=== PATIENT | male | born 1980 | race African-American/Black ===

== ENCOUNTER 2022-08-19 11:23 | Emergency (ER) | payer BC, MEDICAID ==
[2022-08-19] MEDS: Lidocaine 2% Viscous Solution 15 ML UD PO ONE (11:46)
[2022-08-19] MEDS: Acetaminophen/HYDROcodone 325-5 MG Tab PO ONE (12:04)
[2022-08-19] MEDS: Ketorolac 30 MG/ML SDV IM ONE (12:37)
== END 2022-08-19 13:02 | disposition home or self-care (01) ==
LOC: FB.ED 11:23
DX: K05.10 Chronic gingivitis, plaque induced (principal)
CPT/HCPCS: 96372; 99282; 99283; A9270-GY; J1885

== ENCOUNTER 2022-11-22 13:27 | Emergency (ER) | payer SELFPAY | END 2022-11-22 14:42 | disposition home or self-care (01) | LOC: FB.ED 13:27 | DX: M54.42 Lumbago with sciatica, left side (principal); M54.16 Radiculopathy, lumbar region; K59.00 Constipation, unspecified | CPT/HCPCS: 99283 ==